=== PATIENT | male | born 1990 | race Caucasian/White ===

== ENCOUNTER 2018-05-29 04:50 | Emergency (ER) | payer OTHER ==
[2018-05-29 05:04] VITALS: BP 138/86; PULSE 78; RESP 16; TEMP 98.7; O2SAT 99
--- NOTE | 2018-05-29 05:23 | ED PDOC ---
HPI: General Adult Time Seen by Provider: 05/29/18 05:03 Chief Complaint (Nursing): Flu-like Symptoms History Per: Patient History/Exam Limitations: no limitations Additional Complaint(s): Patient came to the ER for nasal congestion. No fevers. No other symptoms: no cough, vomiting, chills, sweats. PMD: [place] Past Medical History Reviewed: Historical Data, Nursing Documentation, Vital Signs Vital Signs: Last Vital Signs Temp 98.7 F 05/29/18 05:01 Pulse 78 05/29/18 05:01 Resp 16 05/29/18 05:01 BP 138/86 05/29/18 05:01 Pulse Ox 99 05/29/18 05:01 - Medical History PMH: No Chronic Diseases - Family History Family History: States: Unknown Family Hx - Home Medications Home Medications: Ambulatory Orders Medication Instructions Recorded Fluticasone Propionate [Flonase] 1 spr NS DAILY #1 bottle 05/29/18 - Allergies Allergies/Adverse Reactions: Allergies Allergy/AdvReac Type Severity Reaction Status Date / Time No Known Allergies Allergy Verified 05/29/18 05:01 Review of Systems ROS Statement: Except As Marked, All Systems Reviewed And Found Negative ENT: Positive for: Nose Congestion Physical Exam - Reviewed Nursing Documentation Reviewed: Yes Vital Signs Reviewed: Yes - Physical Exam Appears: Positive for: Well, Non-toxic, No Acute Distress Head Exam: Positive for: ATRAUMATIC, NORMAL INSPECTION, NORMOCEPHALIC Skin: Positive for: Normal Color, Warm, DRY Eye Exam: Positive for: EOMI, Normal appearance, PERRL ENT: Positive for: Normal ENT Inspection Cardiovascular/Chest: Positive for: Regular Rate, Rhythm Respiratory: Positive for: CNT, Normal Breath Sounds - ECG O2 Sat by Pulse Oximetry: 99 Medical Decision Making Medical Decision Making: Nasal congestion: Normal appearing,normal vitals No acute emergency intervention required Advised patient to followup with PMD Disposition - Clinical Impression Clinical Impression: Nasal congestion - Disposition [facility] Disposition: Routine/Home Disposition Time: 05:24 Condition: STABLE Prescriptions: Fluticasone Propionate [Flonase] 1 spr NS DAILY #1 bottle Instructions: Sinusitis in Adults
== END 2018-05-29 05:33 | disposition home or self-care (01) ==
LOC: H.ER 04:50
DX: R09.81 Nasal congestion (principal)